=== PATIENT | female | born 1995 | race Caucasian/White ===

== ENCOUNTER 2018-03-01 16:21 | Emergency (ER) | payer MEDICAID ==
[~2018-03-01] VITALS: Ht 167.6 cm; Wt 58.2 kg
[2018-03-01 16:29] VITALS: BP 134/73
== END 2018-03-01 17:14 | disposition home or self-care (01) ==
LOC: ER 16:22
DX: S92.311A Displaced fracture of first metatarsal bone, right foot, initial encounter for closed fracture (principal); W23.0XXA Caught, crushed, jammed, or pinched between moving objects, initial encounter; Y93.89 Activity, other specified; Y92.89 Other specified places as the place of occurrence of the external cause; Y99.8 Other external cause status
CPT/HCPCS: 73630; 99284

== ENCOUNTER 2018-03-11 11:22 | Outpatient (CLI) | payer MEDICAID ==
[2018-03-11 11:20] VITALS: BP 129/87
== END 2018-03-11 12:00 | disposition home or self-care (01) ==
LOC: ORTHO 11:22
PROVIDERS: ATTEND Nurse Practitioner Family
DX: S92.411A Displaced fracture of proximal phalanx of right great toe, initial encounter for closed fracture (principal); F17.210 Nicotine dependence, cigarettes, uncomplicated; X58.XXXA Exposure to other specified factors, initial encounter; Y93.89 Activity, other specified; Y92.89 Other specified places as the place of occurrence of the external cause; Y99.8 Other external cause status
CPT/HCPCS: 99213

== ENCOUNTER 2018-03-13 09:07 | Outpatient (CLI) | payer MEDICAID ==
[2018-03-13 09:19] VITALS: BP 117/68
== END 2018-03-13 09:35 | disposition home or self-care (01) ==
LOC: ORTHO 09:07
PROVIDERS: ATTEND Nurse Practitioner Family
DX: S92.411G Displaced fracture of proximal phalanx of right great toe, subsequent encounter for fracture with delayed healing (principal); F17.210 Nicotine dependence, cigarettes, uncomplicated; X58.XXXD Exposure to other specified factors, subsequent encounter
CPT/HCPCS: 73630; 99212

== ENCOUNTER 2018-04-02 09:01 | Outpatient (CLI) | payer MEDICAID ==
[2018-04-02 09:08] VITALS: BP 135/82
== END 2018-04-02 09:38 | disposition home or self-care (01) ==
LOC: ORTHO 09:01
PROVIDERS: ATTEND Nurse Practitioner Family
DX: S92.411G Displaced fracture of proximal phalanx of right great toe, subsequent encounter for fracture with delayed healing (principal); F17.210 Nicotine dependence, cigarettes, uncomplicated; X58.XXXD Exposure to other specified factors, subsequent encounter
CPT/HCPCS: 73660; 99213

== ENCOUNTER 2018-10-24 02:42 | Emergency (ER) | payer MEDICAID ==
[~2018-10-24] VITALS: Ht 170.2 cm; Wt 65.9 kg
[2018-10-24 02:45] VITALS: BP 130/99
== END 2018-10-24 03:11 | disposition home or self-care (01) ==
LOC: ER 02:42
DX: Z04.2 Encounter for examination and observation following work accident (principal); F17.210 Nicotine dependence, cigarettes, uncomplicated
CPT/HCPCS: 99283